=== PATIENT | male | born 1970 | race Caucasian/White ===

== ENCOUNTER 2022-08-04 08:03 | Emergency (ER) | payer OTHER ==
[2022-08-04 08:49] LABS: BASOPHIL 0.4 % (0-2); EOSINOPHIL 0.1 % (0-5); HCT 48.7 % (42.0-52.0); HGB 16.8 g/dl (13.2-18.0); LYMPHOCYTE 3.7 % (15-48); MCH 30.4 pg (25.0-31.0); MCHC 34.5 g/dL (32.0-36.0); MCV 88.2 fL (78.0-100.0); MONOCYTE 3.7 % (0-12); MPV 9.6 fL (6.0-9.5); NEUTROPHIL 91.7 % (41-80); NRBC 0; PLT 308 K/uL (150-400); RBC 5.52 M/uL (4.70-6.00); RDW 13.2 % (11.5-14.0); WBC 12.3 K/uL (4.0-10.5)
[2022-08-04 08:50] LABS: BILIRUBIN NEGATIVE (NEGATIVE); BLOOD NEGATIVE Ery/uL (NEGATIVE); CLARITY CLEAR (CLEAR); COLOR YELLOW (YELLOW); GLUCOSE (U) NORMAL (NORMAL); LEUKOCYTES NEGATIVE Leu/uL (NEGATIVE); NITRITE NEGATIVE (NEGATIVE); PROTEIN TRACE (LOW) mg/dL (NEGATIVE); SPECIFIC GRAVITY 1.015 (1.001-1.030); UROBILINOGEN 0.2 mg/dL (0.2-1.0)
[2022-08-04 09:08] LABS: URINARY WBC RARE
[2022-08-04 09:09] LABS: SQUAMOUS EPITHELIAL CELLS RARE; URINARY RBC RARE
[2022-08-04 09:09] LABS: INR 0.95 (0.9-1.2); PROTHROMBIN TIME 12.4 SECONDS (11.9-13.9); PTT 27.5 SECONDS (24.9-34.6)
[2022-08-04 09:24] LABS: ALBUMIN 4.2 g/dL (3.4-5.0); BILIRUBIN - TOTAL 0.5 mg/dL (0.2-1.0); CORONAVIRUS 2019 SARS-COV-2 NEGATIVE (NEGATIVE); CREATININE 0.82 mg/dL (0.67-1.17); GLOBULIN (CALCULATION) 4.5 g/dL; INFLUENZA A NAA NEGATIVE (NEGATIVE); POTASSIUM 3.9 mmol/L (3.5-5.1); TOTAL PROTEIN 8.7 g/dL (6.4-8.2)
[2022-08-04 09:46] LABS: AMPHETAMINES NEGATIVE (NEGATIVE); BARBITURATES NEGATIVE (NEGATIVE); ECSTASY (MDMA) NEGATIVE (NEGATIVE); MARIJUANA (THC) NEGATIVE (NEGATIVE); METHADONE NEGATIVE (NEGATIVE); OPIATES POSITIVE (NEGATIVE); OXYCODONE NEGATIVE (NEGATIVE)
[2022-08-04] MEDS ORDERED: ONDANSETRON ODT4 MG PO (10:39)
[2022-08-04] MEDS ORDERED: PHENERGAN25 M1 PO (10:39)
== END 2022-08-04 11:07 | disposition home or self-care (01) ==
LOC: FER 08:03
PROVIDERS: Internal Medicine
DX: R10.13 Epigastric pain (principal); R11.2 Nausea with vomiting, unspecified; R19.7 Diarrhea, unspecified; K76.0 Fatty (change of) liver, not elsewhere classified; I10 Essential (primary) hypertension; F17.210 Nicotine dependence, cigarettes, uncomplicated; Z20.822 Contact with and (suspected) exposure to COVID-19
CPT/HCPCS: 36415; 71250; 80053; 80305; 81001; 82140; 83605; 83690; 84145; 85025; 85610; 85730; G0480; J1100; J1170; J1885; J2405; J7030; U0002